=== PATIENT | male | born 1955 | race Caucasian/White ===

== ENCOUNTER → 2016-07-06 | Outpatient (CLI) | payer OTHER ==
[~2016-07-06] MED LIST: ALLO300T2 PO; ASPI81CH43; SIMV-8 PO
[2016-07-06 11:22] LABS: Urine RBC None Seen /hpf (0 - 3)
[2016-07-06 11:54] LABS: Albumin 3.9 g/dL (3.4-5.0); BUN/Creatinine Ratio 18.2; Bilirubin, Total 0.8 mg/dL (0.2-1.0); Calcium 9.1 mg/dL (8.5-10.1); Total Protein 7.8 g/dL (6.4-8.2)
[2016-07-06 11:59] LABS: Urine Bilirubin Negative (Negative); Urine Blood Negative /uL (Negative); Urine Color Yellow (Yellow); Urine Glucose Normal (Normal); Urine Ketone Negative (Negative); Urine Mucus FEW (None Seen); Urine Nitrite Negative (Negative); Urine Squamous Epithelial Cell FEW /hpf (<5); Urine Urobilinogen Normal (Negative)
[2016-07-06 12:03] LABS: Basophils # (auto) 0 uL; Basophils % (auto) 0.4 % (0.0-2.0); Eosinophils # (auto) 0.3 uL; Eosinophils % (auto) 3.4 % (0.0-7.0); Hematocrit 43.8 % (41.0-53.0); Lymphocytes # (auto) 2.6 uL; Lymphocytes % (auto) 33.1 % (10.0-50.0); Mean Corpuscular Hemoglobin 33.2 pg (28.0-32.0); Mean Corpuscular Hgb Conc. 34.3 g/dL (32.0-36.0); Mean Corpuscular Volume 96.8 fL (80.0-100.0); Mean Platelet Volume 10.2 fL (7.4-10.4); Monocytes # (auto) 0.6 uL; Monocytes % (auto) 7.9 % (0.0-12.0); Neutrophils # (auto) 4.3 uL; Neutrophils % (auto) 55.2 % (37.0-80.0); Platelet Count (auto) 217 10^3/uL (140-450); Red Cell Distribution Width 13.6 % (11.6-16.0); White Blood Cell 7.8 10^3/uL (4.4-10.8)
== END | disposition home or self-care (01) ==
LOC: LAB 10:40
PROVIDERS: ATTEND Family Medicine
DX: E78.00 Pure hypercholesterolemia, unspecified (principal); I10 Essential (primary) hypertension
CPT/HCPCS: 36415; 80053; 80061; 81001; 82306; 83036; 84153; 84443; 85025

== ENCOUNTER → 2017-04-12 | Outpatient (CLI) | payer OTHER ==
[2017-04-12 09:57] LABS: Basophils # (auto) 0.1 uL; Basophils % (auto) 0.8 % (0.0-2.0); Eosinophils # (auto) 0.3 uL; Eosinophils % (auto) 3.8 % (0.0-7.0); Hematocrit 44.2 % (41.0-53.0); Lymphocytes # (auto) 2.3 uL; Mean Corpuscular Hemoglobin 33.6 pg (28.0-32.0); Mean Corpuscular Hgb Conc. 33.9 g/dL (32.0-36.0); Mean Corpuscular Volume 99.2 fL (80.0-100.0); Monocytes # (auto) 0.5 uL; Monocytes % (auto) 7.8 % (0.0-12.0); Neutrophils # (auto) 3.6 uL; Neutrophils % (auto) 53.6 % (37.0-80.0); Nucleated Red Blood Cells % 0.1 %; Platelet Count (auto) 189 10^3/uL (140-450); Red Blood Cells 4.45 10^6/uL (4.5-5.90); Red Cell Distribution Width 13.2 % (11.8-14.3); White Blood Cell 6.8 10^3/uL (4.4-10.8)
[2017-04-12 11:04] LABS: Albumin 3.9 g/dL (3.4-5.0); BUN/Creatinine Ratio 16.1; Bilirubin, Total 0.9 mg/dL (0.2-1.0); Calcium 9.1 mg/dL (8.5-10.1); Potassium 4.1 mmol/L (3.5-5.1); Total Protein 8.1 g/dL (6.4-8.2); Uric Acid 5.3 mg/dL (3.5-7.2)
== END | disposition home or self-care (01) ==
LOC: LAB 09:12
PROVIDERS: ATTEND Family Medicine
DX: I10 Essential (primary) hypertension (principal); E78.00 Pure hypercholesterolemia, unspecified; M10.9 Gout, unspecified
CPT/HCPCS: 36415; 80053; 80061; 82306; 84443; 84550; 85025

== ENCOUNTER → 2017-08-02 | Outpatient (CLI) | payer OTHER ==
[2017-08-02 14:47] LABS: Free T4 (Free Thyroxine) 0.86 ng/dL (0.89-1.76); T3 Total 1.17 ng/mL (0.60-1.81)
== END | disposition home or self-care (01) ==
LOC: LAB 13:32
PROVIDERS: ATTEND Family Medicine
DX: R94.6 Abnormal results of thyroid function studies (principal); I10 Essential (primary) hypertension; E78.00 Pure hypercholesterolemia, unspecified; E11.9 Type 2 diabetes mellitus without complications; E78.5 Hyperlipidemia, unspecified; R79.89 Other specified abnormal findings of blood chemistry; Z79.82 Long term (current) use of aspirin
CPT/HCPCS: 36415; 84439; 84443; 84480

== ENCOUNTER → 2017-10-25 | Outpatient (CLI) | payer OTHER | END | disposition home or self-care (01) | LOC: LAB 10:23 | PROVIDERS: ATTEND Family Medicine | DX: E03.9 Hypothyroidism, unspecified (principal) | CPT/HCPCS: 36415; 84443 ==

== ENCOUNTER → 2018-07-04 | Outpatient (CLI) | payer OTHER ==
[2018-07-04 08:43] LABS: Basophils # (auto) 0 uL; Basophils % (auto) 0.6 % (0.0-2.0); Eosinophils # (auto) 0.3 uL; Hematocrit 45.5 % (41.0-53.0); Hemoglobin 15.2 g/dL (13.5-17.5); Lymphocytes # (auto) 2.4 uL; Lymphocytes % (auto) 37.3 % (10.0-50.0); Mean Corpuscular Hemoglobin 33.5 pg (28.0-32.0); Mean Corpuscular Hgb Conc. 33.4 g/dL (32.0-36.0); Mean Corpuscular Volume 100.1 fL (80.0-100.0); Monocytes # (auto) 0.5 uL; Monocytes % (auto) 7.3 % (0.0-12.0); Neutrophils # (auto) 3.3 uL; Neutrophils % (auto) 50.8 % (37.0-80.0); Nucleated Red Blood Cells % 0.1 %; Platelet Count (auto) 173 10^3/uL (140-450); Red Blood Cells 4.55 10^6/uL (4.5-5.90); Red Cell Distribution Width 13.7 % (11.8-14.3); White Blood Cell 6.5 10^3/uL (4.4-10.8)
[2018-07-04 09:27] LABS: Albumin 3.9 g/dL (3.4-5.0); Potassium 4.1 mmol/L (3.5-5.1)
[2018-07-04 09:30] LABS: BUN/Creatinine Ratio 17.9; Bilirubin, Total 0.8 mg/dL (0.2-1.0); Total Protein 7.5 g/dL (6.4-8.2)
[2018-07-04 10:24] LABS: Urine Bacteria NONE SEEN /hpf (None Seen); Urine Blood Negative /uL (Negative); Urine Mucus FEW (None Seen); Urine Specific Gravity 1.023 (1.001-1.035); Urine WBC 2 /hpf (0 - 3)
[2018-07-04 17:08] LABS: Urine Bacteria NONE SEEN /hpf (None Seen); Urine Blood Negative /uL (Negative); Urine Mucus FEW (None Seen); Urine Specific Gravity 1.025 (1.001-1.035); Urine WBC 1 /hpf (0 - 3)
== END | disposition home or self-care (01) ==
LOC: LAB 08:23
PROVIDERS: ATTEND Family Medicine
DX: E03.9 Hypothyroidism, unspecified (principal); E78.49 Other hyperlipidemia
CPT/HCPCS: 36415; 80053; 80061; 81001; 84153; 84443; 85025

== ENCOUNTER → 2018-08-18 | Outpatient (CLI) | payer OTHER ==
[2018-08-18 16:27] LABS: Albumin 3.9 g/dL (3.4-5.0); BUN/Creatinine Ratio 17.4; Calcium 9.2 mg/dL (8.5-10.1); Potassium 4.2 mmol/L (3.5-5.1)
[2018-08-18 16:30] LABS: Bilirubin, Total 0.5 mg/dL (0.2-1.0); Total Protein 7.9 g/dL (6.4-8.2)
== END | disposition home or self-care (01) ==
LOC: LAB 15:55
PROVIDERS: ATTEND Family Medicine
DX: Z01.818 Encounter for other preprocedural examination (principal); R22.1 Localized swelling, mass and lump, neck
CPT/HCPCS: 36415; 80053

== ENCOUNTER → 2018-12-05 | Outpatient (CLI) | payer OTHER | END | disposition home or self-care (01) | LOC: LAB 07:17 | PROVIDERS: ATTEND Family Medicine | DX: E55.9 Vitamin D deficiency, unspecified (principal); E03.9 Hypothyroidism, unspecified; R94.6 Abnormal results of thyroid function studies | CPT/HCPCS: 36415; 82306; 84443 ==

== ENCOUNTER → 2019-12-25 | Outpatient (CLI) | payer MEDICARE, OTHER ==
[~2019-12-25] MED LIST changes: +ATOR20TA PO; +FAMO20TA10 PO; +LEV50T PO; +MET25T PO; -SIMV-8 PO
== END | disposition home or self-care (01) ==
LOC: Rad HDHVI 08:06
PROVIDERS: ATTEND Internal Medicine Cardiovascular Disease
DX: I10 Essential (primary) hypertension (principal); R07.89 Other chest pain
CPT/HCPCS: 93306

== ENCOUNTER → 2020-02-26 | Outpatient (CLI) | payer MEDICARE, OTHER ==
[2020-02-26 09:43] LABS: Basophils # (auto) 0 10 ^3/uL (0-0.2); Basophils % (auto) 0.4 % (0.0-2.0); Eosinophils # (auto) 0.2 10 ^3/uL (0-0.8); Eosinophils % (auto) 2.8 % (0.0-7.0); Hematocrit 43.3 % (41.0-53.0); Hemoglobin 14.8 g/dL (13.5-17.5); Lymphocytes # (auto) 2.2 10 ^3/uL (0.4-5.4); Lymphocytes % (auto) 33.1 % (10.0-50.0); Mean Corpuscular Hemoglobin 33.9 pg (28.0-32.0); Mean Corpuscular Hgb Conc. 34.1 g/dL (32.0-36.0); Mean Corpuscular Volume 99.5 fL (80.0-100.0); Monocytes # (auto) 0.5 10 ^3/uL (0-1.3); Monocytes % (auto) 7.4 % (0.0-12.0); Neutrophils # (auto) 3.8 10 ^3/uL (1.6-8.6); Neutrophils % (auto) 56.3 % (37.0-80.0); Platelet Count (auto) 199 10^3/uL (140-450); Red Blood Cells 4.35 10^6/uL (4.5-5.90); Red Cell Distribution Width 13.6 % (11.8-14.3); White Blood Cell 6.8 10^3/uL (4.4-10.8)
[2020-02-26 09:59] LABS: Urine Bacteria NONE SEEN /hpf (None Seen); Urine Blood Negative /uL (Negative); Urine Hyaline Cast FEW /lpf (0 - 2); Urine Mucus FEW (None Seen); Urine Specific Gravity 1.021 (1.001-1.035); Urine WBC 1 /hpf (0 - 3)
[2020-02-26 10:10] LABS: Calcium 9.2 mg/dL (8.5-10.1); Potassium 3.8 mmol/L (3.5-5.1)
[2020-02-26 10:17] LABS: Albumin 3.7 g/dL (3.4-5.0); BUN/Creatinine Ratio 16.3; Bilirubin, Total 0.9 mg/dL (0.2-1.0); Total Protein 7.5 g/dL (6.4-8.2); Uric Acid 4.9 mg/dL (3.5-7.2)
== END | disposition home or self-care (01) ==
LOC: LAB 08:05
PROVIDERS: ATTEND Family Medicine
DX: Z12.5 Encounter for screening for malignant neoplasm of prostate (principal); E78.49 Other hyperlipidemia; E03.9 Hypothyroidism, unspecified; E66.01 Morbid (severe) obesity due to excess calories; Z87.39 Personal history of other diseases of the musculoskeletal system and connective tissue
CPT/HCPCS: 36415; 80053; 80061; 81001; 84153; 84443; 84550; 85025

== ENCOUNTER → 2020-04-18 | Outpatient (CLI) | payer MEDICARE, OTHER | END | disposition home or self-care (01) | LOC: LAB 08:15 | PROVIDERS: ATTEND Family Medicine | DX: E03.9 Hypothyroidism, unspecified (principal); R79.89 Other specified abnormal findings of blood chemistry | CPT/HCPCS: 36415; 84443 ==

== ENCOUNTER 2020-09-06 10:59 | Inpatient (IN) | payer MEDICARE, OTHER ==
[~2020-09-06] VITALS: Ht 175.3 cm; Wt 152.0 kg
[2020-09-06 13:57] LABS: Basophils # (auto) 0 10 ^3/uL (0-0.2); Hemoglobin 14.7 g/dL (13.5-17.5); Lymphocytes # (auto) 2.1 10 ^3/uL (0.4-5.4); Monocytes # (auto) 0.6 10 ^3/uL (0-1.3); Nucleated Red Blood Cells % 0.1 %
[2020-09-06 14:00] LABS: Basophils % (auto) 0.5 % (0.0-2.0); Eosinophils # (auto) 0 10 ^3/uL (0-0.8); Eosinophils % (auto) 0.5 % (0.0-7.0); Hematocrit 42.1 % (41.0-53.0); Lymphocytes % (auto) 24.2 % (10.0-50.0); Mean Corpuscular Hemoglobin 34.9 pg (28.0-32.0); Mean Corpuscular Hgb Conc. 34.9 g/dL (32.0-36.0); Mean Corpuscular Volume 99.8 fL (80.0-100.0); Monocytes % (auto) 7.1 % (0.0-12.0); Neutrophils # (auto) 5.9 10 ^3/uL (1.6-8.6); Neutrophils % (auto) 67.7 % (37.0-80.0); Red Blood Cells 4.22 10^6/uL (4.5-5.90); Red Cell Distribution Width 13.7 % (11.8-14.3); White Blood Cell 8.8 10^3/uL (4.4-10.8)
[2020-09-06 14:16] LABS: Albumin 3.9 g/dL (3.4-5.0); Anion Gap 6 (5-15); Blood Urea Nitrogen 18 mg/dL (7-18); Calcium 8.9 mg/dL (8.5-10.1); Carbon Dioxide 26 mmol/L (21-32); Chloride 108 mmol/L (98-107); Glucose 93 mg/dL (74-106); Magnesium 2.2 mg/dL (1.6-2.6); Potassium 3.9 mmol/L (3.5-5.1); Sodium 140 mmol/L (136-145)
[2020-09-06 14:22] LABS: Alanine Aminotransferase 33 U/L (16-61); Alkaline Phosphatase 117 U/L (45-117); Aspartate Aminotransferase 26 U/L (15-37); Bilirubin, Total 0.9 mg/dL (0.2-1.0); GFR African American 121 mL/min; GFR Non-African American 100 mL/min; Total Protein 7.7 g/dL (6.4-8.2)
[2020-09-06] MEDS ORDERED: LORazepam 2MG/ML-1ML VIAL IV PRN (20:30)
[2020-09-06] MEDS ORDERED: KETOROLAC TROMETH 30 MG/ML 1ML VIAL IV ONE (21:15)
[2020-09-06 22:20] LABS: Cholesterol 167 mg/dL (< 200)
[2020-09-06 22:23] LABS: HDL Cholesterol 44 mg/dL (40-59); LDL Cholesterol 106 mg/dL (< 100); Triglycerides 129 mg/dL (< 150)
[2020-09-06 22:30] LABS: Folate (Folic Acid) 16.48 ng/mL (5.38-24)
[2020-09-06] MEDS: METOPROLOL TARTRATE 25 MG TAB PO SCH (22:56)
[2020-09-06] MEDS: ATORVASTATIN 20 MG TAB PO SCH (22:56)
[2020-09-06] MEDS: GABAPENTIN 100 MG CAP PO SCH (22:56)
[2020-09-06] MEDS: FAMOTIDINE 20 MG TAB PO SCH (22:56)
[2020-09-06] MEDS: ALLOPURINOL 300 MG TAB PO SCH (22:57)
[2020-09-06] MEDS: HYDROcodone-ACET 5/325MG TAB PO PRN (23:10)
[2020-09-07] VITALS (10 sets, daily range): BP systolic 113–163; BP diastolic 54–96
[2020-09-07] MEDS: HYDROcodone-ACET 5/325MG TAB PO PRN ×3 (05:18→18:20)
[2020-09-07 05:25] LABS: Anion Gap 6 (5-15); Blood Urea Nitrogen 21 mg/dL (7-18); Calcium 8.5 mg/dL (8.5-10.1); Carbon Dioxide 26 mmol/L (21-32); Chloride 107 mmol/L (98-107); Glucose 96 mg/dL (74-106); Potassium 3.6 mmol/L (3.5-5.1); Sodium 139 mmol/L (136-145)
[2020-09-07 05:31] LABS: BUN/Creatinine Ratio 25.6; GFR African American 121 mL/min; GFR Non-African American 100 mL/min
[2020-09-07] MEDS: LEVOTHYROXINE SODIUM 50 MCG TAB PO SCH (06:32)
[2020-09-07] MEDS: GABAPENTIN 100 MG CAP PO SCH (10:25)
[2020-09-07] MEDS: FAMOTIDINE 20 MG TAB PO SCH ×2 (10:26→22:00)
[2020-09-07] MEDS: METOPROLOL TARTRATE 25 MG TAB PO SCH ×2 (10:26→22:00)
[2020-09-07] MEDS: GABAPENTIN 300 MG CAP PO SCH ×2 (15:07→21:59)
[2020-09-07] MEDS ORDERED: MORPHINE SULFATE INJECTION 2 MG/ML SYRG IV PRN (18:00)
[2020-09-07] MEDS: ATORVASTATIN 20 MG TAB PO SCH (21:59)
[2020-09-07] MEDS: ALLOPURINOL 300 MG TAB PO SCH (22:00)
[2020-09-08 05:00] VITALS: BP 157/95
[2020-09-08] MEDS: LEVOTHYROXINE SODIUM 50 MCG TAB PO SCH (06:18)
[2020-09-08] MEDS: GABAPENTIN 300 MG CAP PO SCH ×2 (06:18→13:48)
[2020-09-08] MEDS: HYDROcodone-ACET 5/325MG TAB PO PRN (06:19)
[2020-09-08 08:25] VITALS: BP 164/98
[2020-09-08] MEDS: FAMOTIDINE 20 MG TAB PO SCH (09:05)
[2020-09-08] MEDS: METOPROLOL TARTRATE 25 MG TAB PO SCH (09:05)
[2020-09-08 12:26] VITALS: BP 164/96
[2020-09-08 12:27] VITALS: BP 164/96
[2020-09-08] MEDS ORDERED: cloNIDine HCL 0.1 MG TAB PO ONE (13:30)
== END 2020-09-08 15:20 | disposition home or self-care (01) | DRG 74 ==
LOC: ER 10:59 → OVERFLOW 15:46 → CENTRAL 23:22
PROVIDERS: ADMIT Nurse Practitioner Acute Care; ATTEND Family Medicine
PROC: 5A09357 Assistance with Respiratory Ventilation, Less than 24 Consecutive Hours, Continuous Positive Airway Pressure (ICD-10-PCS; principal; 2020-09-07)
PROC: 5A09357 Assistance with Respiratory Ventilation, Less than 24 Consecutive Hours, Continuous Positive Airway Pressure (ICD-10-PCS; 2020-09-08)
DX: M54.12 Radiculopathy, cervical region (principal); I24.9 Acute ischemic heart disease, unspecified; Z68.43 Body mass index [BMI] 50.0-59.9, adult; E03.9 Hypothyroidism, unspecified; I10 Essential (primary) hypertension; E66.01 Morbid (severe) obesity due to excess calories; Z91.041 Radiographic dye allergy status; E11.42 Type 2 diabetes mellitus with diabetic polyneuropathy; E78.00 Pure hypercholesterolemia, unspecified; E78.5 Hyperlipidemia, unspecified; Z79.82 Long term (current) use of aspirin; M10.9 Gout, unspecified; Z79.899 Other long term (current) drug therapy; Z82.0 Family history of epilepsy and other diseases of the nervous system; Z86.73 Personal history of transient ischemic attack (TIA), and cerebral infarction without residual deficits
CPT/HCPCS: 36415; 70551; 71045; 72125; 72128; 72131; 72141; 72148; 80048; 80053; 80061; 82607; 82746; 83735; 83880; 84443; 84484; 85025; 85652; 87426; 93005; 94660; G0378; J1885

== ENCOUNTER → 2021-04-14 | Outpatient (CLI) | payer MEDICARE, OTHER ==
[2021-04-15 08:06] LABS: Immunoglobulin G, Serum 1111 mg/dL (603-1613)
== END | disposition home or self-care (01) ==
LOC: LAB 09:53
PROVIDERS: ATTEND Psychiatry & Neurology Neurology
DX: G62.89 Other specified polyneuropathies (principal)
CPT/HCPCS: 36415; 82784; 82951; 84155; 84156; 84165; 84166; 84207; 84425; 86334

== ENCOUNTER → 2021-05-08 | Outpatient (CLI) | payer MEDICARE, OTHER ==
[2021-05-08 09:20] LABS: Basophils # (auto) 0 10 ^3/uL (0-0.2); Basophils % (auto) 0.4 % (0.0-2.0); Eosinophils # (auto) 0.2 10 ^3/uL (0-0.8); Eosinophils % (auto) 3.2 % (0.0-7.0); Hematocrit 42.5 % (41.0-53.0); Hemoglobin 14.1 g/dL (13.5-17.5); Lymphocytes # (auto) 1.7 10 ^3/uL (0.4-5.4); Lymphocytes % (auto) 28.1 % (10.0-50.0); Mean Corpuscular Hemoglobin 33.1 pg (28.0-32.0); Mean Corpuscular Hgb Conc. 33.2 g/dL (32.0-36.0); Mean Corpuscular Volume 99.6 fL (80.0-100.0); Monocytes # (auto) 0.5 10 ^3/uL (0-1.3); Monocytes % (auto) 8.5 % (0.0-12.0); Neutrophils # (auto) 3.7 10 ^3/uL (1.6-8.6); Neutrophils % (auto) 59.8 % (37.0-80.0); Nucleated Red Blood Cells % 0.1 %; Red Blood Cells 4.27 10^6/uL (4.5-5.90); Red Cell Distribution Width 13.4 % (11.8-14.3); White Blood Cell 6.2 10^3/uL (4.4-10.8)
[2021-05-08 09:48] LABS: Albumin 3.8 g/dL (3.4-5.0); BUN/Creatinine Ratio 20.4; Bilirubin, Total 0.8 mg/dL (0.2-1.0); Calcium 9.6 mg/dL (8.5-10.1); Total Protein 7.6 g/dL (6.4-8.2)
== END | disposition home or self-care (01) ==
LOC: LAB 08:25
PROVIDERS: ATTEND Student in an Organized Health Care Education/Training Program
DX: E66.01 Morbid (severe) obesity due to excess calories (principal); E03.9 Hypothyroidism, unspecified; Z00.00 Encounter for general adult medical examination without abnormal findings; E78.49 Other hyperlipidemia; Z87.39 Personal history of other diseases of the musculoskeletal system and connective tissue; E11.9 Type 2 diabetes mellitus without complications
CPT/HCPCS: 36415; 80053; 80061; 83036; 85025

== ENCOUNTER → 2021-05-17 | Outpatient (CLI) | payer MEDICARE, OTHER | END | disposition home or self-care (01) | LOC: LAB 12:12 | PROVIDERS: ATTEND Student in an Organized Health Care Education/Training Program | DX: E03.9 Hypothyroidism, unspecified (principal); E78.49 Other hyperlipidemia; E66.01 Morbid (severe) obesity due to excess calories; Z87.39 Personal history of other diseases of the musculoskeletal system and connective tissue | CPT/HCPCS: 82274 ==

== ENCOUNTER → 2021-08-29 | Outpatient (CLI) | payer MEDICARE, OTHER | END | disposition home or self-care (01) | LOC: Rad HDHVI 08:57 | PROVIDERS: ATTEND Internal Medicine Cardiovascular Disease | DX: I71.2 Thoracic aortic aneurysm, without rupture (principal); I11.0 Hypertensive heart disease with heart failure; I50.33 Acute on chronic diastolic (congestive) heart failure | CPT/HCPCS: 93306 ==

== ENCOUNTER → 2021-11-07 | Outpatient (CLI) | payer MEDICARE, OTHER ==
[~2021-11-07] MED LIST changes: +CHOL50007 PO; +CYAN1TAB11 PO; +GABA300C10 PO; +LEVO25TA6 PO; +LIDOCAINE 2%HCL (LOCAL ANESTH.) INJ 20ML MDV ONE; +ZINC50TA7 PO
[2021-11-07 11:29] VITALS: BP 140/73
[2021-11-07 11:45] VITALS: BP 143/70
[2021-11-07 16:47] LABS: Basophils # (auto) 0 10 ^3/uL (0-0.2); Basophils % (auto) 0.5 % (0.0-2.0); Eosinophils # (auto) 0.2 10 ^3/uL (0-0.8); Hematocrit 41.4 % (41.0-53.0); Hemoglobin 13.5 g/dL (13.5-17.5); Lymphocytes % (auto) 34.9 % (10.0-50.0); Mean Corpuscular Hemoglobin 32.8 pg (28.0-32.0); Mean Corpuscular Hgb Conc. 32.5 g/dL (32.0-36.0); Mean Corpuscular Volume 100.7 fL (80.0-100.0); Monocytes # (auto) 0.4 10 ^3/uL (0-1.3); Monocytes % (auto) 7.7 % (0.0-12.0); Neutrophils # (auto) 3.1 10 ^3/uL (1.6-8.6); Neutrophils % (auto) 53.9 % (37.0-80.0); Red Blood Cells 4.11 10^6/uL (4.5-5.90); Red Cell Distribution Width 13.7 % (11.8-14.3); White Blood Cell 5.8 10^3/uL (4.4-10.8)
[2021-11-07 16:53] LABS: Calcium 9.3 mg/dL (8.5-10.1); Potassium 3.9 mmol/L (3.5-5.1)
[2021-11-07 16:55] LABS: BUN/Creatinine Ratio 19.3
[2021-11-07 17:08] LABS: INR 0.97 (0.9-1.15); Partial Thromboplastin Time 27.8 sec (24.6-33.4)
== END | disposition home or self-care (01) ==
LOC: CHF HDHVI 10:58
PROVIDERS: ATTEND Internal Medicine Cardiovascular Disease
DX: I45.10 Unspecified right bundle-branch block (principal); R94.31 Abnormal electrocardiogram [ECG] [EKG]; R79.1 Abnormal coagulation profile; I11.0 Hypertensive heart disease with heart failure; I50.23 Acute on chronic systolic (congestive) heart failure; D64.9 Anemia, unspecified; R06.02 Shortness of breath; R07.89 Other chest pain; I42.0 Dilated cardiomyopathy; Z01.818 Encounter for other preprocedural examination
CPT/HCPCS: 36415; 80048; 85025; 85610; 85730; 93005; G0463

== ENCOUNTER 2021-11-08 12:55 | Day surgery (SDC) | payer MEDICARE, OTHER ==
[2021-11-08] VITALS (8 sets, daily range): BP systolic 108–135; BP diastolic 72–86
[~2021-11-08] VITALS: Ht 175.3 cm; Wt 131.5 kg
[~2021-11-08 12:55] MED LIST changes: -FAMO20TA10 PO; -LIDOCAINE 2%HCL (LOCAL ANESTH.) INJ 20ML MDV ONE
[2021-11-08] MEDS ORDERED: ANGIOMAX 250 MG VIAL IV ONE (15:51)
[2021-11-08] MEDS ORDERED: fentaNYL CITRATE 100 MCG/2 ML VL ONE (15:51)
[2021-11-08] MEDS ORDERED: MIDAZOLAM HCL 2MG/2ML 2ml VIAL (1mg/ml) ONE (15:51)
[2021-11-08] MEDS ORDERED: methylPREDNISolone SOD SUCC 125 MG/2 ML VL ONE (15:52)
[2021-11-08] MEDS ORDERED: FAMOTIDINE (10MG/ML) 2ML VL IV ONE (15:52)
[2021-11-08] MEDS ORDERED: diphenhdrAMINE HCL 50 MG/1 ML VL ONE (15:52)
[2021-11-08] MEDS ORDERED: VERAPAMIL 2.5MG/ML INJ 2ML VIAL IV ONE (16:00)
[2021-11-08] MEDS ORDERED: HEPARIN SODIUM (PORCINE) 5000 UNITS/ML 1ML VIAL ONE (16:01)
== END 2021-11-08 18:50 | disposition home or self-care (01) ==
LOC: CATH 12:55
PROVIDERS: ATTEND Internal Medicine Cardiovascular Disease
DX: I25.119 Atherosclerotic heart disease of native coronary artery with unspecified angina pectoris (principal); I10 Essential (primary) hypertension; E78.5 Hyperlipidemia, unspecified; E66.01 Morbid (severe) obesity due to excess calories; G47.30 Sleep apnea, unspecified; Z86.718 Personal history of other venous thrombosis and embolism; Z86.73 Personal history of transient ischemic attack (TIA), and cerebral infarction without residual deficits; Z82.49 Family history of ischemic heart disease and other diseases of the circulatory system; Z95.5 Presence of coronary angioplasty implant and graft; Z20.822 Contact with and (suspected) exposure to COVID-19; Z68.41 Body mass index [BMI] 40.0-44.9, adult
CPT/HCPCS: 93453; C1769; C1887; C1894; J1200; J1644; J2250; J2930; J3010; J3490; U0003; 99152

== ENCOUNTER → 2021-11-24 | Outpatient (CLI) | payer MEDICARE, OTHER | END | disposition home or self-care (01) | LOC: LAB 09:14 | PROVIDERS: ATTEND Student in an Organized Health Care Education/Training Program | DX: E03.9 Hypothyroidism, unspecified (principal) | CPT/HCPCS: 36415; 84443 ==

== ENCOUNTER → 2022-05-25 | Outpatient (CLI) | payer MEDICARE, OTHER ==
[2022-05-25 09:54] LABS: Basophils # (auto) 0.1 10 ^3/uL (0-0.2); Basophils % (auto) 0.8 % (0.0-2.0); Eosinophils # (auto) 0.2 10 ^3/uL (0-0.8); Eosinophils % (auto) 2.6 % (0.0-7.0); Hematocrit 42.7 % (41.0-53.0); Hemoglobin 14.1 g/dL (13.5-17.5); Lymphocytes # (auto) 2.2 10 ^3/uL (0.4-5.4); Lymphocytes % (auto) 35.1 % (10.0-50.0); Mean Corpuscular Hemoglobin 32.5 pg (28.0-32.0); Mean Corpuscular Hgb Conc. 33.1 g/dL (32.0-36.0); Mean Corpuscular Volume 98.4 fL (80.0-100.0); Monocytes # (auto) 0.5 10 ^3/uL (0-1.3); Monocytes % (auto) 8.2 % (0.0-12.0); Neutrophils # (auto) 3.4 10 ^3/uL (1.6-8.6); Neutrophils % (auto) 53.3 % (37.0-80.0); Nucleated Red Blood Cells % 0.2 %; Red Blood Cells 4.33 10^6/uL (4.5-5.90); Red Cell Distribution Width 14.7 % (11.8-14.3); White Blood Cell 6.4 10^3/uL (4.4-10.8)
[2022-05-25 10:55] LABS: Albumin 3.8 g/dL (3.4-5.0); BUN/Creatinine Ratio 26.2; Bilirubin, Total 0.7 mg/dL (0.2-1.0); Calcium 9.1 mg/dL (8.5-10.1); Potassium 4.1 mmol/L (3.5-5.1); Total Protein 7.4 g/dL (6.4-8.2)
== END | disposition home or self-care (01) ==
LOC: LAB 09:35
PROVIDERS: ATTEND Student in an Organized Health Care Education/Training Program
DX: E03.9 Hypothyroidism, unspecified (principal); E78.49 Other hyperlipidemia; E66.01 Morbid (severe) obesity due to excess calories; Z87.39 Personal history of other diseases of the musculoskeletal system and connective tissue
CPT/HCPCS: 36415; 80053; 80061; 82274; 84443; 85025

== ENCOUNTER → 2022-06-18 | Outpatient (CLI) | payer MEDICARE, OTHER | END | disposition home or self-care (01) | LOC: Rad HDHVI 09:49 | PROVIDERS: ATTEND Internal Medicine Cardiovascular Disease | DX: I10 Essential (primary) hypertension (principal); E78.5 Hyperlipidemia, unspecified | CPT/HCPCS: 93880 ==

== ENCOUNTER → 2022-07-03 | Outpatient (CLI) | payer MEDICARE, OTHER | END | disposition home or self-care (01) | LOC: Rad HDHVI 08:58 | PROVIDERS: ATTEND Internal Medicine Cardiovascular Disease | DX: I08.1 Rheumatic disorders of both mitral and tricuspid valves (principal); R06.02 Shortness of breath; R00.2 Palpitations | CPT/HCPCS: 93306 ==

== ENCOUNTER → 2022-11-30 | Outpatient (CLI) | payer MEDICARE, OTHER ==
[~2022-11-30] MED LIST changes: +GABA-1250 PO; -GABA300C10 PO
== END | disposition home or self-care (01) ==
LOC: LAB 13:20
PROVIDERS: ATTEND Family Medicine
DX: L82.1 Other seborrheic keratosis (principal)
CPT/HCPCS: 88302

== ENCOUNTER 2024-09-25 09:30 | Outpatient (CLI) | payer MEDICARE, OTHER ==
[~2024-09-25 09:30] MED LIST changes: -LEV50T PO; +LEVO-848 PO
[2024-09-25 10:21] LABS: Anion Gap 8 (5-15); Carbon Dioxide 30 mmol/L (20-31); Chloride 105 mmol/L (98-107); Potassium 3.7 mmol/L (3.5-5.1); Sodium 143 mmol/L (136-145)
[2024-09-25 10:22] LABS: Calcium 10.3 mg/dL (8.7-10.4)
[2024-09-25 10:26] LABS: Hematocrit 41.1 % (41.0-53.0); Hemoglobin 13.8 g/dL (13.5-17.5); Mean Corpuscular Hemoglobin 32.8 pg (28.0-32.0); Mean Corpuscular Volume 97.6 fL (80.0-100.0); Nucleated Red Blood Cells % 0.1 %; Urine Protein, UAD 1+ (Negative)
[2024-09-25 10:27] LABS: Alkaline Phosphatase 122 U/L (46-116); BUN/Creatinine Ratio 19.3 (10.0-20.0); Blood Urea Nitrogen 16 mg/dL (9-23); Glucose 101 mg/dL (74-106); Total Protein 7.2 g/dL (5.7-8.2); Triglycerides 98 mg/dL (< 150)
[2024-09-25 10:28] LABS: Albumin 4.5 g/dL (3.2-4.8)
[2024-09-25 10:29] LABS: Bilirubin, Total 0.9 mg/dL (0.2-1.0); Cholesterol 144 mg/dL (< 200); HDL Cholesterol 41 mg/dL (40-59)
[2024-09-25 10:36] LABS: Alanine Aminotransferase 19 U/L (7-40)
== END 2024-09-25 17:00 | disposition home or self-care (01) ==
LOC: LAB 09:30
PROVIDERS: ATTEND Nurse Practitioner
DX: E78.5 Hyperlipidemia, unspecified (principal); F03.90 Unspecified dementia, unspecified severity, without behavioral disturbance, psychotic disturbance, mood disturbance, and anxiety; Z00.00 Encounter for general adult medical examination without abnormal findings; E03.9 Hypothyroidism, unspecified; R73.9 Hyperglycemia, unspecified; Z79.899 Other long term (current) drug therapy
CPT/HCPCS: 36415; 80053; 80061; 81001; 83036; 84153; 84443; 85025

== ENCOUNTER 2025-01-29 16:33 | Emergency (ER) | payer MEDICARE, OTHER ==
[~2025-01-29] VITALS: Ht 175.3 cm; Wt 124.3 kg
--- NOTE | 2025-01-29 18:08 | ED.PDOC ---
History of Present Illness HPI Comments Mr. Lovell is a 69 year old male with PMHx of hypertension, hypothyroidism, osteoarthritis, inguinal hernias, gout, and hyperlipidemia, who presents today with chief complaint of high blood pressure. The patient states he stopped taking metoprolol over a year ago and yesterday went to his orthopedist office where his blood pressure was taken showing SBP in the 190s mmHg. The patient rechecked his BP at home stating SBP readings were within 175-190s range. Additionally refers pressure-like sensation in his head, however reiterates it is not painful. He denies visual is, shortness of breath, chest pain, cough, nasal congestion, dysuria, hematuria, back pain, nausea, vomiting, fever, disorientation, numbness and/or weakness in extremities. Due to elevated blood pressure, the patient presents today for evaluation. On initial eval the patient seems well, blood pressure reading of 180/88 mmHg, other vitals are within normal range, he ambulates without difficulty, with no overt signs of distress. Chief Complaint: High Blood Pressure Time Seen by MD: 16:45 Allergies: Coded Allergies: Iodine (Verified Allergy, Unknown, 01/16/23) Home Meds Active Scripts Atorvastatin Calcium (Lipitor) 20 Mg Tab, 1 TAB PO DAILY, #30 TAB Prov:JOAQUIN SAMANIEGO MD 12/03/19 Metoprolol Tartrate (Lopressor) 25 Mg Tb, 12.5 MG PO Q12HR, #60 TAB 0 Refills Prov:JOAQUIN SAMANIEGO MD 12/03/19 Reported Medications Levothyroxine Sodium (Levothyroxine Sodium) 25 Mcg Tab, 75 MCG PO EVERY OTHER DAY for LOW THYROID, MCG 11/07/21 Cyanocobalamin (Vitamin B12) 1,000 Mcg Tab, 1000 MCG PO M,W,F for SUPPLEMENT, TAB 11/07/21 Cholecalciferol (VITAMIN D3) 5,000 Unit Cap, 5000 UNIT PO M,W,F for SUPPLEMENT, CAP 11/07/21 Zinc Gluconate (Zinc) 50 Mg Tab, 50 MG PO DAILY for supplement, TAB 11/07/21 Gabapentin (Gabapentin) 300 Mg Cap, 300 MG PO BID for neuropathy, MG 11/07/21 Levothyroxine Sodium (SYNTHROID TABLET) 50 Mcg Tb, 1 TAB PO EVERY OTHER DAY, #30 TAB 5 Refills 12/02/19 Allopurinol (Allopurinol) 300 Mg Tab, 300 MG PO HS for 30 Days, MG 05/06/15 Aspirin (Asa) 81 Mg Ch, DAILY 09/23/09 Information Source: Patient Mode of Arrival: Ambulatory Severity: None Timing: Days Duration: Since onset Past Medical History PAST MEDICAL HISTORY: Gout, High Lipids, HTN, Thyroid Past Medical History (Other): Inguinal hernias Surgical History (Other): Angiogram, Exploratory Laporatomy Family History Family History: Family hx of Cancer Social History Smoker: Non-Smoker Alcohol: Occasionally Drugs: Denies Drug Use Lives In: Home Constitutional: denies: chills, diaphoresis, fatigue, fever, malaise, sweats, weakness EENTM: denies: blurred vision, double vision, eye redness, hearing loss, mouth pain, nasal discharge, nose bleeding, nose congestion, tearing, throat pain Respiratory: denies: cough, hemoptysis, orthopnea, shortness of breath Cardiovascular: denies: chest pain, dizzy spells, diaphoresis, Dyspnea on exertion, edema, irregular heart beat, left arm pain, lightheadedness, palpitations Gastrointestinal: denies: abdomen distended, abdominal pain, blood streaked bowels, constipated, diarrhea, dysphagia, difficulty swallowing, hematemesis, melena, nausea, rectal bleeding, vomiting Genitourinary: denies: burning, dysuria, flank pain, frequency, hematuria, incontinence, pain, urgency Neurological: denies: dizziness, fainting, headache, numbness, paresthesia, pre-existing deficit, seizure, weakness Musculoskeletal: denies: back pain, joint pain, joint swelling, muscle pain, muscle stiffness, neck pain Integumetry: denies: bruises, laceration, lesions, lumps, rash, wounds Physical Exam General Appearance: Obese HEENT: Normal ENT Inspection, PERRL/EOMI, Pharynx Normal Neck: Full Range of Motion, Non-Tender, Normal Inspection Respiratory: Chest Non-Tender, Lungs Clear, No Accessory Muscle Use, No Respiratory Distress, Normal Breath Sounds Cardiovascular: No Edema, No Murmur, Normal Peripheral Pulses, Regular Rate/Rhythm Breast Exam: Deferred Gastrointestinal: Non Tender, Normal Bowel Sounds, Other (Two hernias are palpated in lower abdominal quadrants, not painful on palpation ) Genitalia: Deferred Pelvic: Deferred Rectal: Deferred Extremities: Normal capillary refill, Normal range of motion, Non-tender Neurologic: Alert, Normal Affect, Normal Mood Cerebellar Function: NOT DONE Reflexes: NOT DONE Skin: Normal Color, Other Peripheral Pulses: 2+ dorsalis pedis (R), 2+ dorsalis pedis (L) Lymphatic: Other (No cervical adenopathy ) Was a procedure done? Was a procedure done?: No EKG EKG : Pulse Rate (adult): 75 [place]: Normal Cardiac Rhythm: NSR Block: RBBB Hypertrophy: None ST: Normal Differential Dx Considerations may include: HTN urgency, Hypertensive emergency, medication non-compliance, myocardial infarction, ACS, pericarditis, esophageal spasm, GERD, esophagitis X-Ray, Labs, Meds, VS Vital Signs Date Time Temp Pulse Resp B/P (MAP) Pulse Ox O2 Delivery O2 Flow Rate FiO2 01/29/25 19:04 98.6 72 18 149/82 (104) 99 98.6 01/29/25 19:04 72 18 99 Room Air 01/29/25 16:40 98.3 82 18 180/88 95 98.3 Lab Test 01/29/25 17:49 Range/Units White Blood Count 7.1 4.4-10.8 10^3/uL Red Blood Count 4.12 L 4.5-5.90 10^6/uL Hemoglobin 13.6 13.5-17.5 g/dL Hematocrit 40.6 L 41.0-53.0 % Mean Corpuscular Volume 98.5 80.0-100.0 fL Mean Corpuscular Hemoglobin 33.0 H 28.0-32.0 pg Mean Corpuscular Hemoglobin Concent 33.5 32.0-36.0 g/dL Red Cell Distribution Width 14.1 11.8-14.3 % Platelet Count 198 140-450 10^3/uL Mean Platelet Volume 9.6 6.9-10.8 fL Neutrophils (%) (Auto) 61.9 37.0-80.0 % Lymphocytes (%) (Auto) 28.9 10.0-50.0 % Monocytes (%) (Auto) 6.3 0.0-12.0 % Eosinophils (%) (Auto) 2.2 0.0-7.0 % Basophils (%) (Auto) 0.7 0.0-2.0 % Neutrophils # (Auto) 4.4 1.6-8.6 10 ^3/uL Lymphocytes # (Auto) 2.1 0.4-5.4 10 ^3/uL Monocytes # (Auto) 0.4 0-1.3 10 ^3/uL Eosinophils # (Auto) 0.2 0-0.8 10 ^3/uL Basophils # (Auto) 0 0-0.2 10 ^3/uL Nucleated Red Blood Cells 0.1 % Sodium Level 145 136-145 mmol/L Potassium Level 3.6 3.5-5.1 mmol/L Chloride Level 103 98-107 mmol/L Carbon Dioxide Level 30 20-31 mmol/L Anion Gap 12 5-15 Blood Urea Nitrogen 17 9-23 mg/dL Creatinine 0.85 0.700-1.30 mg/dL Glomerular Filtration Rate Calc 93 >90 mL/min BUN/Creatinine Ratio 20.0 10.0-20.0 Serum Glucose 108 H 74-106 mg/dL Calcium Level 9.8 8.7-10.4 mg/dL Troponin I High Sensitivity 25 </=54 ng/L Time of 1ST Reevaluation: 19:11 Reevaluation 1ST: Improved Patient Education/Counseling: Diagnosis, Treatment Family Education/Counseling: No Family Present Comments Presents today due to high blood pressure On initial evaluation, the patient seems well, blood pressure is 180/88 mmHg, other vitals are within normal range, he ambulates without difficulty, and without overt signs of distress Physical exam shows presence of bilateral abdominal hernia, with no other positive findings CBC and CMP is within normal range Troponins are negative EKG On re-evaluation, the patient states he feels well, follow up blood pressure is 149/82 mmHg On evaluation of data, it is unlikely that the patient is presenting with pericarditis, myocardial infarction, or acute coronary syndrome. The patient is considered stable for discharge home with recommendation to follow up with PCP to restart blood pressure regimen SEPSIS Sepsis Screen Date sepsis recognized/suspect: Jan 29, 2025 Time Sepsis recognized/suspect: 1641 Recent Procedure: No On Antibiotic Therapy: No Respiratory Rate >20: No Heart Rate >90: No Temp<36 C (96.8 F) or >38.3 C: No SBP <90 or MAP <65 mmHG: No New Acute Mental Status Change: No Is the patient on CPAP, BIPAP,: No Physician Orders Electrocardigram (01/29/25 17:10) Troponin-I Hs (01/29/25 18:10) Vital Signs Date Time Temp Pulse Resp B/P (MAP) Pulse Ox O2 Delivery O2 Flow Rate FiO2 01/29/25 19:04 98.6 72 18 149/82 (104) 99 98.6 01/29/25 19:04 72 18 99 Room Air 01/29/25 16:40 98.3 82 18 180/88 95 98.3 Laboratory Tests Test 01/29/25 17:49 White Blood Count 7.1 10^3/uL (4.4-10.8) Departure 1 Departure Time of Disposition: 19:37 Impression: Primary Impression: Hypertensive urgency Disposition: HOME / SELF CARE / HOMELESS Condition: Stable Additional Instructions: You presented today due to high blood pressure On evaluation your blood pressure was 180/88 mmHg, your other vitals were within normal range Your workup which includes a CBC, BMP, EKG, and troponins are benign On re-evaluation, your blood pressure is 149/82 mmHg Reconsider you are stable for discharge home We recommend that you follow up with your PCP within 1-3 days for further evaluation In the meantime continue monitoring your blood pressure Should your symptoms persist/worsen or should you have any further questions or concerns please return to the emergency department. Discharged With: Self Critical Care Note Critical Care Time?: No Stability Stability form required: No Heart Score Heart Score: Heart Score Response (Comments) Value History Slightly Suspicious 0 EKG Normal 0 Age >65 2 Risk Factors 1 or 2 risk factors 1 Troponin Normal limit 0 Total 3 ELA GRANGER RESIDENT Jan 29, 2025 18:08
[2025-01-29 18:09] LABS: Chloride 103 mmol/L (98-107); Potassium 3.6 mmol/L (3.5-5.1); Sodium 145 mmol/L (136-145)
[2025-01-29 18:10] LABS: Anion Gap 12 (5-15); Carbon Dioxide 30 mmol/L (20-31)
[2025-01-29 18:11] LABS: Calcium 9.8 mg/dL (8.7-10.4)
[2025-01-29 18:14] LABS: Hematocrit 40.6 % (41.0-53.0); Hemoglobin 13.6 g/dL (13.5-17.5); Mean Corpuscular Hemoglobin 33.0 pg (28.0-32.0); Mean Corpuscular Volume 98.5 fL (80.0-100.0); Nucleated Red Blood Cells % 0.1 %
[2025-01-29 18:15] LABS: BUN/Creatinine Ratio 20.0 (10.0-20.0); Blood Urea Nitrogen 17 mg/dL (9-23)
[2025-01-29 18:17] LABS: Glucose 108 mg/dL (74-106)
[2025-01-29 19:04] VITALS: BP 149/82; RESP 18; TEMP 98.6; O2SAT 99
[2025-01-29 19:37] VITALS: PULSE 75
--- NOTE | 2025-01-30 19:19 | ECG ---
[facility] Test Date: 2025-01-29 Test Time: 19:13:45 Pat Name: MARQUES ESPITIA Department: [facility] ED Patient ID: [id number] Room: Gender: M Language Pathologist: JONNA : 1955 Requested By: ELA GRANGER Order Number: [id number] Reading MD: Kendall Bower Measurements Intervals [place] Rate: 75 P: 25 RI: 218 QRS: -2 QRSD: 118 T: 12 QT: 408 QTc: 456 Interpretive Statements Sinus rhythm Borderline prolonged RI interval Incomplete right bundle branch block Low voltage, precordial leads Electronically Signed On 02-02-2025 17:46:34 PST by Kendall Bower Please click the below link to view image of tracing.
== END 2025-01-29 19:59 | disposition home or self-care (01) ==
LOC: ER 16:33
DX: I16.0 Hypertensive urgency (principal); I10 Essential (primary) hypertension; E03.9 Hypothyroidism, unspecified; E78.5 Hyperlipidemia, unspecified; M10.00 Idiopathic gout, unspecified site; M19.90 Unspecified osteoarthritis, unspecified site; Z79.82 Long term (current) use of aspirin; Z79.899 Other long term (current) drug therapy; Z88.8 Allergy status to other drugs, medicaments and biological substances
CPT/HCPCS: 36415; 80048; 84484; 85025; 93005

== ENCOUNTER 2025-03-10 08:37 | Outpatient (CLI) | payer MEDICARE, OTHER ==
--- NOTE | 2025-03-10 09:46 | DVH ---
US US GUIDANCE FOR NEEDLE PLACEME, HISTORY: ABNORMAL LT BREAST US PROCEDURE: Informed consent was obtained. The patient was positioned supine on the table, and limited US was performed of the left breast. The skin overlying the biopsy site was prepped with chlorhexidine which was allowed to dry. Time out was performed. The entry site was anesthetized with 1% lidocaine. A 18 gauge Biopince needle was advanced into the mass. Multiple core biopsy samples were obtained using the 18 gauge biopsy needle. The samples were sent to formalin to pathology for analysis. A marker clip was deployed in the mass. Imaging through the biopsy site was performed. No immediate complication was identified. FINDINGS: Intra-procedural images show the biopsy needle at the lesion. No significant post biopsy hemorrhage is identified. IMPRESSION: US-guided biopsy of the left breast lesion at 12 o clock. Pathology results pending.
== END 2025-03-10 17:00 | disposition home or self-care (01) ==
LOC: US 08:37
PROVIDERS: ATTEND Nurse Practitioner
DX: N63.25 Unspecified lump in the left breast, overlapping quadrants (principal); D24.2 Benign neoplasm of left breast; Z79.82 Long term (current) use of aspirin; Z79.899 Other long term (current) drug therapy; Z79.890 Hormone replacement therapy; Z82.49 Family history of ischemic heart disease and other diseases of the circulatory system; Z91.041 Radiographic dye allergy status
CPT/HCPCS: 19083; 88305; A4648; 76642; 76942